=== PATIENT | female | born 1980 | race Caucasian/White ===

== ENCOUNTER 2016-04-15 08:12 | Emergency (ER) | payer OTHER ==
[~2016-04-15] VITALS: Ht 165.1 cm; Wt 67.6 kg
[~2016-04-15 08:12] MED LIST: Motrin PO; PREDNISONE50 MG PO; Percocet 5/325,Endoc PO; SERTRALINE HCL100 MG PO
[2016-04-15] MEDS ORDERED: DELTASONE20 M1 PO (10:26)
[2016-04-15] MEDS ORDERED: ZANTAC150 MG PO (10:26)
[2016-04-15] MEDS ORDERED: ZYRTEC10 M2 PO (10:26)
[2016-04-15] MEDS ORDERED: RHINOCORT ALL8.43 ML BOTH NARES (10:26)
[2016-04-15 10:46] VITALS: BP 115/74
== END 2016-04-15 10:48 | disposition home or self-care (01) ==
LOC: EME 08:12
DX: J06.9 Acute upper respiratory infection, unspecified (principal); J30.2 Other seasonal allergic rhinitis; J98.01 Acute bronchospasm; J45.909 Unspecified asthma, uncomplicated; Z33.1 Pregnant state, incidental; Z88.1 Allergy status to other antibiotic agents; Z88.2 Allergy status to sulfonamides
CPT/HCPCS: 94640; 99281; 99284

== ENCOUNTER 2016-09-17 15:26 | Inpatient (IN) | payer OTHER ==
[2016-09-17] VITALS (10 sets, daily range): BP systolic 136–175; BP diastolic 80–93
[~2016-09-17] VITALS: Ht 165.1 cm; Wt 82.0 kg
[~2016-09-17 15:26] MED LIST changes: +DELTASONE20 M1 PO; +RHINOCORT ALL8.43 ML BOTH NARES; +ZANTAC150 MG PO; +ZYRTEC10 M2 PO
[2016-09-17] MEDS ORDERED: PRENATAL TABLE1 EAC3 PO (16:20)
[2016-09-17 17:02] LABS: EOSINOPHIL (%) 0.5 % (0-5); HEMATOCRIT 36.6 % (36.0-46.0); IMMATURE GRANULOCYTE (%) 0.5 % (0.0-0.7); INSTRUMENT ABS NEUTROPHIL CT 5.1 K/uL; LYMPHOCYTE COUNT 1.8 K/uL (1.0-2.8); MCH 31.3 PG (29.0-34.0); MCHC 34.7 G/DL (30.0-36.0); MCV 90.1 FL (83-99); MEAN PLAT.VOLUME 12.6 uM^3 (9.5-12.4); MONOCYTE (%) 6.3 % (3-12); MONOCYTE COUNT 0.5 K/uL (0-0.8); NEUTROPHIL (%) 68.7 % (45-76); NEUTROPHIL COUNT 5.1 K/uL (1.8-6.4); PLATELET COUNT 127 K/uL (156-360); RBC DIS.WIDTH-CV 14.3 % (11.8-14.6); RBC DIS.WIDTH-SD 46.4 % (39-53); RED BLOOD COUNT 4.06 M/uL (3.80-5.20); WHITE BLOOD COUNT 7.4 K/uL (4.1-10.2)
[2016-09-17] MEDS ORDERED: IBUPROFEN800 MG PO (17:35)
[2016-09-18 07:47] VITALS: BP 145/83
[2016-09-18 15:00] VITALS: BP 135/79
[2016-09-18 22:57] VITALS: BP 130/94
[2016-09-19 15:10] VITALS: BP 153/96
== END 2016-09-19 17:36 | disposition home or self-care (01) | DRG 775 ==
LOC: LDRP-OP 15:26 → 2WEST 15:27 → LDRP-OP 10-23 07:33
PROVIDERS: Obstetrics & Gynecology
PROC: 10907ZC Drainage of Amniotic Fluid, Therapeutic from Products of Conception, Via Natural or Artificial Opening (ICD-10-PCS; principal; 2016-09-17)
PROC: 10E0XZZ Delivery of Products of Conception, External Approach (ICD-10-PCS; principal; 2016-09-17)
PROC: 00HU33Z Insertion of Infusion Device into Spinal Canal, Percutaneous Approach (ICD-10-PCS; principal; 2016-09-17)
PROC: 0KQM0ZZ Repair Perineum Muscle, Open Approach (ICD-10-PCS; principal; 2016-09-17)
PROC: 3E0R3CZ (ICD-10-PCS; principal; 2016-09-17)
DX: O13.4 Gestational [pregnancy-induced] hypertension without significant proteinuria, complicating childbirth (principal); O99.344 Other mental disorders complicating childbirth; O77.0 Labor and delivery complicated by meconium in amniotic fluid; O70.1 Second degree perineal laceration during delivery; F32.9 Major depressive disorder, single episode, unspecified; O99.52 Diseases of the respiratory system complicating childbirth; J45.909 Unspecified asthma, uncomplicated; Z37.0 Single live birth; Z3A.39 39 weeks gestation of pregnancy
CPT/HCPCS: 85025; C1755; J3010; J7120